=== PATIENT | female | born 1975 | race Hispanic/Latino ===

== ENCOUNTER 2017-10-07 20:54 | Emergency (ER) | payer OTHER ==
[~2017-10-07] VITALS: Ht 160 cm; Wt 70.3 kg
--- NOTE | 2017-10-08 06:39 | EKG ---
[facility] [address] [facility] [place], [place] [address] Signed Normal sinus rhythm Incomplete right bundle branch block Left anterior fascicular block Septal infarct , age undetermined Abnormal ECG No previous ECGs available Confirmed by DAJA ZHU MD ([id number] on 10/08/2017 6:39:29 AM Electronically Signed By: DAJA HZU MD 10/08/17 0639 PATIENT NAME: WILDA VICK Electrocardiogram DATE OF : 71 PHYSICIAN: DAJA ZHU MD REPORT #: [id number] REPORT IS CONFIDENTIAL AND NOT TO BE RELEASED WITHOUT AUTHORIZATION
== END 2017-10-08 01:42 | disposition home or self-care (01) ==
LOC: ED 20:54
DX: R07.89 Other chest pain (principal); Z90.49 Acquired absence of other specified parts of digestive tract; Z88.2 Allergy status to sulfonamides
CPT/HCPCS: 36415; 71046; 80053; 84484; 85025; 85379; 93005; 93010; 99284